=== PATIENT | female | born 1985 | race Caucasian/White ===

== ENCOUNTER → 2021-10-23 | Outpatient (CLI) | payer BC ==
[~2021-10-23] MED LIST: CLARITIN10 M2 PO; COLACE100 MG PO; FEOSOL325 MG PO; FLINTSTONES CO1 EAC1 PO; IBUPROFEN600 MG PO; LABETALOL HCL100 MG PO; LISINOPRIL-HCT1 EACH PO; NORCO 5-325 TA1 EACH PO; OMEPRAZOLE20 M1 PO; PROCARDIA XL30 MG PO; TRANDATE 100 M100 MG PO
== END ==
LOC: KOH-I 15:13
DX: M25.552 Pain in left hip (principal)
CPT/HCPCS: 73502